=== PATIENT | female | born 1945 | race African-American/Black ===

== ENCOUNTER 2016-05-08 06:25 | Day surgery (SDC) | payer BC ==
[~2016-05-08] VITALS: Ht 167.6 cm; Wt 66.2 kg
[~2016-05-08 06:25] MED LIST: ASPI-1035 PO; CINAMMON; ESTR42.53 VG; FISH OIL PO; FLAXSEED OIL PO; LOSA25TA12 PO; METF-246 PO; OCD PO; OMEG1CAP17 PO; PRAV40TA58 PO; SIMV20TA6 PO; VITAMIN E PO; [UNRECOGNIZED DRUG - OTHER] PO
[2016-05-08] MEDS ORDERED: PROPOFOL 200MG/20ML VIAL IV ONE (08:24)
[2016-05-08] MEDS ORDERED: FENTANYL CITRATE/PF 50MCG/ML 2ML VIAL ONE (08:24)
[2016-05-08] MEDS ORDERED: MIDAZOLAM HCL 2 MG/2 ML VIAL ONE (08:24)
[2016-05-08] MEDS ORDERED: LACTATED RINGERS 1,000 ML IV SCH (08:25)
[2016-05-08] MEDS ORDERED: SODIUM CHLORIDE 0.9% 10ML VIAL ONE (08:27)
[2016-05-08] MEDS ORDERED: CEFAZOLIN SODIUM 1000MG/VIAL ONE (08:27)
[2016-05-08] MEDS ORDERED: ANAS1TAB7 PO (08:37)
[2016-05-08] MEDS ORDERED: ACETAMINOPHEN 325MG TABLET PO PRN (10:15)
[2016-05-08] MEDS ORDERED: FENTANYL CITRATE/PF 50MCG/ML 2ML VIAL IV PRN (11:00)
[2016-05-08] MEDS ORDERED: ONDANSETRON HCL 4MG/2ML VIAL IV PRN (11:00)
[2016-05-08 11:13] VITALS: BP 119/57
== END 2016-05-08 12:10 | disposition home or self-care (01) ==
LOC: OR 06:25
PROVIDERS: ATTEND Obstetrics & Gynecology Obstetrics
DX: N84.0 Polyp of corpus uteri (principal); E11.9 Type 2 diabetes mellitus without complications; I10 Essential (primary) hypertension; E78.5 Hyperlipidemia, unspecified; Z85.3 Personal history of malignant neoplasm of breast; Z83.3 Family history of diabetes mellitus
CPT/HCPCS: 58558; 82962; 88305; 93005; A4216; J0690; J2250; J3010; J7120; J2704

== ENCOUNTER → 2016-08-16 | Outpatient (CLI) | payer BC ==
[~2016-08-16] MED LIST changes: +ANAS1TAB7 PO; -METF-246 PO; +METF10002 PO
[2016-08-16 17:09] LABS: ALANINE AMINOTRANSFERASE 24 IU/L (13-61); ALBUMIN 3.9 g/dL (3.4-5.0); ANION GAP 15; CALCIUM 9.8 mg/dL (8.5-10.1); CARBON DIOXIDE 27 mEq/L (21-32); CHLORIDE 104 mEq/L (98-107); HDL CHOLESTEROL 89 mg/dL (40-59); INDEX HEMOLYSI 1 (1-3); INDEX ICTERIC 1 (1-4); INDEX LIPEMIC 1 (1-3); LDL CHOLESTEROL 56 mg/dL (5-100); THYROID STIMULATING HORMONE 0.66 uIU/mL (0.36-3.74); TRIGLYCERIDE 57 mg/dL (0-150); UREA NITROGEN BLOOD 20 mg/dL (7-21); eGFR > 60 mL/min (>60)
[2016-08-16 17:29] LABS: BASOPHILS % 0.3 % (0.0-2.0); EOSINOPHILS % 0.9 % (0.0-5.0); LYMPHOCYTES % 30.5 % (20.0-50.0); MEAN CORPUSCULAR HEMOGLOBIN 28.5 pg (28.0-32.0); MEAN CORPUSCULAR HGB CONC 32.5 g/dL (31.0-37.0); MEAN CORPUSCULAR VOLUME 87.8 fL (81.0-99.0); MEAN PLATELET VOLUME 9.4 fl (7.4-10.4); NEUTROPHILS % 60.3 % (40.0-76.0); PLATELET 190 x1000/uL (130-400); RED BLOOD CELL COUNT 4.21 mill/uL (4.2-5.4); RED CELL DISTRIBUTION WIDTH 13.9 % (11.6-14.6); WHITE BLOOD COUNT 4.6 x1000/uL (4.5-11.0)
[2016-08-18 08:13] LABS: MICROALBUMIN RANDOM URINE 6.1 ug/mL (Not Estab.)
== END | disposition home or self-care (01) ==
LOC: LAB 16:15
PROVIDERS: ATTEND Internal Medicine Endocrinology, Diabetes & Metabolism
DX: E11.9 Type 2 diabetes mellitus without complications (principal); E04.1 Nontoxic single thyroid nodule; D64.9 Anemia, unspecified; E78.00 Pure hypercholesterolemia, unspecified
CPT/HCPCS: 36415; 80053; 80061; 82043; 82570; 83036; 84439; 84443; 85025

== ENCOUNTER → 2016-11-14 | Outpatient (CLI) | payer BC ==
[~2016-11-14] MED LIST changes: -ASPI-1035 PO; +ASPI-1159 PO
[2016-11-14 14:14] LABS: BASOPHILS % 0.3 % (0.0-2.0); EOSINOPHILS % 0.8 % (0.0-5.0); HEMATOCRIT. 36.7 % (36.0-48.0); HEMOGLOBIN. 11.9 g/dL (12.0-16.0); LYMPHOCYTES % 28.8 % (20.0-50.0); MEAN CORPUSCULAR HEMOGLOBIN 28.6 pg (28.0-32.0); MEAN PLATELET VOLUME 8.9 fl (7.4-10.4); MONOCYTES % 9.2 % (2.0-8.0); NEUTROPHILS % 60.9 % (40.0-76.0); PLATELET 142 x1000/uL (130-400); RED BLOOD CELL COUNT 4.18 mill/uL (4.2-5.4); RED CELL DISTRIBUTION WIDTH 14.2 % (11.6-14.6)
[2016-11-14 14:31] LABS: CARBON DIOXIDE 28 mEq/L (21-32); CHLORIDE 105 mEq/L (98-107); HDL CHOLESTEROL 80 mg/dL (40-59); LDL CHOLESTEROL 64 mg/dL (5-100); T4 FREE 1.03 ng/dL (0.76-1.46)
== END | disposition home or self-care (01) ==
LOC: LAB 12:35
PROVIDERS: ATTEND Internal Medicine Endocrinology, Diabetes & Metabolism
DX: E10.9 Type 1 diabetes mellitus without complications (principal); I10 Essential (primary) hypertension; D64.9 Anemia, unspecified; E78.00 Pure hypercholesterolemia, unspecified; E04.1 Nontoxic single thyroid nodule
CPT/HCPCS: 36415; 80053; 80061; 83036; 84439; 84443; 85025; 86800

== ENCOUNTER → 2017-02-14 | Outpatient (CLI) | payer BC ==
[2017-02-14 12:20] LABS: BASOPHILS % 0.4 % (0.0-2.0); EOSINOPHILS % 0.6 % (0.0-5.0); HEMATOCRIT. 36.2 % (36.0-48.0); HEMOGLOBIN. 11.8 g/dL (12.0-16.0); LYMPHOCYTES % 24.9 % (20.0-50.0); MEAN CORPUSCULAR HEMOGLOBIN 29.4 pg (28.0-32.0); MEAN CORPUSCULAR VOLUME 89.8 fL (81.0-99.0); MEAN PLATELET VOLUME 8.8 fl (7.4-10.4); NEUTROPHILS % 65.1 % (40.0-76.0); PLATELET 148 x1000/uL (130-400); RED BLOOD CELL COUNT 4.03 mill/uL (4.2-5.4); RED CELL DISTRIBUTION WIDTH 14.4 % (11.6-14.6)
[2017-02-14 12:49] LABS: CARBON DIOXIDE 26 mEq/L (21-32); CHLORIDE 106 mEq/L (98-107); HDL CHOLESTEROL 100 mg/dL (40-59); LDL CHOLESTEROL 53 mg/dL (5-100); T4 FREE 1.08 ng/dL (0.76-1.46); TOTAL IRON BINDING CAPACITY 305 ug/dL (250-450)
[2017-02-14 13:45] LABS: FOLIC ACID (FOLATE) SERUM 17.8 ng/mL (>5.38)
[2017-02-17 09:06] LABS: A/G RATIO 1.3 (0.7-1.7); ALPHA-1-GLOBULIN 0.2 g/dL (0.0-0.4); ALPHA-2-GLOBULIN 0.7 g/dL (0.4-1.0); BETA GLOBULIN 1.3 g/dL (0.7-1.3); GLOBULIN TOTAL 3.2 g/dL (2.2-3.9); M-SPIKE Not Observed g/dL (Not Observed); TOTAL PROTEIN SERUM 7.2 g/dL (6.0-8.5)
[2017-02-19 13:12] LABS: METHYLMALONIC ACID 129 nmol/L (0-378)
== END | disposition home or self-care (01) ==
LOC: LAB 11:57
PROVIDERS: ATTEND Internal Medicine Endocrinology, Diabetes & Metabolism
DX: E11.9 Type 2 diabetes mellitus without complications (principal); D64.9 Anemia, unspecified; E04.1 Nontoxic single thyroid nodule; E78.00 Pure hypercholesterolemia, unspecified
CPT/HCPCS: 36415; 80053; 80061; 82607; 82728; 82746; 83036; 83540; 83550; 83921; 84155; 84165; 84439; 84443; 85025

== ENCOUNTER → 2017-04-08 | Outpatient (CLI) | payer BC | END | disposition home or self-care (01) | LOC: MAMMO 10:02 | PROVIDERS: ATTEND Internal Medicine Hematology & Oncology | DX: Z12.31 Encounter for screening mammogram for malignant neoplasm of breast (principal) | CPT/HCPCS: G0202 ==

== ENCOUNTER → 2019-01-22 | Outpatient (CLI) | payer MEDICARE ==
[~2019-01-22] MED LIST changes: -ASPI-1159 PO; +ASPI-1393 PO; -LOSA25TA12 PO; +LOSA25TA26 PO; +METF-416 PO; -METF10002 PO
== END | disposition home or self-care (01) ==
LOC: NM 08:37
PROVIDERS: ATTEND Internal Medicine Endocrinology, Diabetes & Metabolism
DX: E83.52 Hypercalcemia (principal); Z85.3 Personal history of malignant neoplasm of breast
CPT/HCPCS: 78306; A9503

== ENCOUNTER → 2019-09-24 | Outpatient (CLI) | payer MEDICARE ==
[~2019-09-24] MED LIST changes: -ASPI-1393 PO; +ASPI-1497 PO; +SIMV-43 PO; -SIMV20TA6 PO
== END | disposition home or self-care (01) ==
LOC: RAD 10:17
PROVIDERS: ATTEND Internal Medicine Endocrinology, Diabetes & Metabolism
DX: M41.84 Other forms of scoliosis, thoracic region (principal); E83.52 Hypercalcemia; I70.0 Atherosclerosis of aorta
CPT/HCPCS: 71046